=== PATIENT | male | born 1950 | race Caucasian/White ===

== ENCOUNTER → 2021-12-23 10:52 | Outpatient (BNVA) | payer MEDICARE, OTHER, SELFPAY | PROVIDERS: PCP Internal Medicine; Referring Provider Internal Medicine; Visit Provider Internal Medicine Cardiovascular Disease | DX: I34.0 Nonrheumatic mitral (valve) insufficiency (principal); Z79.01 Long term (current) use of anticoagulants; I48.91 Unspecified atrial fibrillation; I77.810 Thoracic aortic ectasia; Z98.890 Other specified postprocedural states | CPT/HCPCS: 93005; 99203 ==

== ENCOUNTER 2021-12-23 11:01 | Outpatient (CLI) | payer MEDICARE, OTHER, SELFPAY ==
--- NOTE | 2021-12-23 11:00 | RT.EKG_ITS ---
APPROVED REPORT Exam: Resting ECG Reason for Exam: NPW, Baseline needed Patient Location: O HR:67 bpm ECG Measurements Heart Rate 67 AXIS WA 189 P 20 QRSd 96 QRS 24 QT 395 T 34 QTc 417 Conclusion Sinus rhythm...normal P axis, V-rate 50- 99 Late transition
== END 2021-12-23 11:02 | disposition home or self-care (01) ==
LOC: DI.CARD 11:02
PROVIDERS: PCP Internal Medicine; Visit Provider Internal Medicine Cardiovascular Disease
DX: I48.91 Unspecified atrial fibrillation (principal)
CPT/HCPCS: 93010

== ENCOUNTER 2022-06-02 07:17 | Day surgery (SDC) | payer MEDICARE, OTHER, SELFPAY ==
--- NOTE | 2022-06-02 07:49 | W.ANESPRE ---
General Info Date of Service Date Performed: 06/02/22 Height: 5 ft 10 in Weight: 85.275 kg Body Mass Index (BMI): 26.9 Surgical Procedure: Operation Date: 06/02/22 09:10 Proposed Procedure Side Surgeon p Cataract Extraction with IOL Implant Left Ulysses Omalley MD Meds Allergies and Home Medications Allergies Allergy/AdvReac Type Severity Reaction Status Date / Time No Known Allergies Allergy Verified 06/02/22 08:02 Home Medication Medication Instructions Recorded acetaminophen 500 mg capsule 500 mg PO Q6H PRN 11/16/21 amoxicillin 500 mg capsule 2,000 mg PO DAILY PRN 11/16/21 apixaban 5 mg tablet 5 mg PO BID 11/16/21 ascorbate calcium (vitamin C) 500 2 g PO DAILY 11/16/21 mg tablet aspirin 81 mg tablet,delayed 81 mg PO DAILY 11/16/21 release (Adult Aspirin Regimen) atorvastatin 40 mg tablet 40 mg PO DAILY 11/16/21 cholecalciferol (vitamin D3) 50 50 mcg PO DAILY 11/16/21 mcg (2,000 unit) capsule diltiazem HCl 180 mg capsule,24 180 mg PO DAILY 11/16/21 hr,extended release metoprolol succinate 50 mg 50 mg PO DAILY 11/16/21 tablet,extended release 24 hr vitamin B complex (B 1 tab PO DAILY 11/16/21 Complex-Vitamin B12 tablet) zinc 50 mg tablet 50 mg PO DAILY 11/16/21 Current Visit Medications: Current Medications Generic Name Dose Route Start Last Admin Trade Name Freq PRN Reason Stop Dose Admin Acetaminophen 1,000 mg 06/02/22 06:00 Acetaminophen 500 Mg Tab PO Q4H PRN PRN Miscellaneous Medication 0 ml 06/02/22 06:00 Prednisolone 1%, Moxifloxacin 0.5%, Nepafenac 0.1% 5ml Btl OS DIRECTED NING Miscellaneous Medication 0 ml 06/02/22 06:00 Tropicam./Phenyleph. (1/2.5%) 5 Ml Btl OS DIRECTED NING Tetracaine HCl 0 ml 06/02/22 06:00 Tetracaine 0.5% 4 Ml Btl OS DIRECTED NING PFSH Active Problems Active Problems: Problem Status Onset Code Nuclear sclerotic cataract of left eye H25.12 Medical History Medical History Abnormal TSH Afib Aortic ectasia, thoracic Aortic root dilatation Claustrophobia Triplett syndrome Neck pain MIRIAN (obstructive sleep apnea) Overweight Pulmonary HTN Reduced libido Surgical History Surgical History H/O laminectomy [place] [place] surgery Maxillary sinusotomy and partial ethmoidectomy History of tonsillectomy Hx of cardiac cath Hx of colonoscopy Hx of vasectomy Tobacco Smoking/Tobacco Use Status: Former Tobacco Use Alcohol Alcohol Intake: current Alcohol intake frequency: 3 or more drinks per day Alcohol type: wine Substance Use Substance use type: does not use Vital Signs and Lab Results Manually Entered Vital Signs Most Recent Manually Entered Vital Signs: Adult Blood Pressure: 149/92 Heart Rate: 65 Respirations: 16 Oxygen Saturation (%): 96 Temperature (C): 37 C Pain Score (0-10 Scale): 0 Lab Results Blood Type / Crossmatch: No Data to Display Complete Blood Count: No Data to Display Complete Metabolic Panel: No Data to Display Liver Function Panel: No Data to Display Coagulation Panel: No Data to Display Cardiac Panel: No Data to Display Arterial Blood Gas: No Data to Display Venous Blood Gas: No Data to Display Pancreas Panel: No Data to Display Thyroid Panel: No Data to Display Infectious Disease: No Data to Display Blood Cultures: No Data to Display Toxicology Panel: No Data to Display Imaging and Studies Imaging and Studies Study information below may be from another EMR and interpreted by another provider. Please see original notes in EMR for more complete details. Other Study Summary:: Assessment & Plan (1) Afib: Patient has paroxysmal atrial fibrillation. He is currently in sinus rhythm. He is on stroke prevention with Eliquis. It was discussed that he should continue that medication. We also reviewed that atrial fibrillation may well recur and that various other interventions and medications remain potential therapies. At present I did not recommend any change in his medical regimen (2) H/O mitral valve repair: Patient is status post mitral valve repair. He has some residual mitral regurgitation. Last echo was in July. 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 This will be monitored moving forward by echocardiogram Plan As above, no medication changes, no diagnostic testing recommended today. Follow-up in 6 months Orders [id number] - Unspecified atrial fibrillation Assessment & Plan (1) Afib: Patient has paroxysmal atrial fibrillation. He is currently in sinus rhythm. He is on stroke prevention with Eliquis. It was discussed that he should continue that medication. We also reviewed that atrial fibrillation may well recur and that various other interventions and medications remain potential therapies. At present I did not recommend any change in his medical regimen (2) H/O mitral valve repair: Patient is status post mitral valve repair. He has some residual mitral regurgitation. Last echo was in July. 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 This will be monitored moving forward by echocardiogram Plan As above, no medication changes, no diagnostic testing recommended today. Follow-up in 6 months Orders [id number] - Unspecified atrial fibrillation Anesthesia Assessment and Plan Anesthesia History Personal History: No History of Anesthesia Complications Family History: No Family History of Anesthesia Complications Exercise Tolerance Exercise Tolerance: Metabolic Equivalents>4 Pertinent Negatives Pertinent Negatives: No Symptoms of GERD Cardiac & Pulmonary Exam Cardiac Exam: Normal S1/S2 Heart Sounds Pulmonary Exam: Clear Bilateral Breath Sounds Implantable Cardiac Device Does patient have a Pacemaker or an ICD?: No Airway Exam Known Difficult Airway: No Mallampati Class: 3 Mouth Opening: Normal (> 3cm) Thyromental Distance: Greater than 3 cm Neck Range of Motion: Full ROM Neck Circumference: Normal Teeth Condition: Normal Dentition ASA Classification ASA Score: ASA 3 Emergency Case?: No NPO Status NPO Status: NPO Clears >2 hours, Solids >8 hours Anesthesia Plan Resuscitation Status: Full Code Anesthesia Technique: MAC Anesthesia Airway Planned: Natural Airway Monitors Used: Standard Monitors Preoperative Comments:: No mko
[2022-06-02 08:05] VITALS: BP 149/92; PULSE 65; RESP 16; TEMP 37; O2SAT 96
[2022-06-02 08:08] VITALS: BMI 26.9
[2022-06-02] MEDS: Tropicam./Phenyleph. (1/2.5%) 5 ML BTL OS ×3 (08:13→08:23)
[2022-06-02 08:26] VITALS: BP 149/92; PULSE 65; RESP 16; TEMPC 37; O2SAT 96
[2022-06-02] MEDS: Tetracaine 0.5% 4 ML BTL OS (08:49)
[2022-06-02] MEDS: Lidocaine 2% Jelly 6 ML SYR (08:50)
[2022-06-02] MEDS: Balanced Salt Soln.-PLUS 500 ML BAG (08:58)
[2022-06-02] MEDS: Duovisc Viscoelastic System EACH 1 EACH (08:59)
[2022-06-02] MEDS: Lidocaine 1% Pres-Free 5 ML VIAL (08:59)
[2022-06-02] MEDS: Povidone-Iodine Ophth 30 ML BTL (09:01)
[2022-06-02 09:15] VITALS: BP 134/89; PULSE 65; RESP 16; TEMP 36.2; O2SAT 100
--- NOTE | 2022-06-02 09:20 | W.PM.DSUDISC ---
Date of service: 06/02/22 Time of Service: 09:20 Discharge Plan Disposition Patient Disposition: Home Discharge Details Attending Provider: Ulysses Omalley Home Meds and New Rx's Prescriptions: No Action acetaminophen 500 mg capsule 500 mg PO Q6H PRN amoxicillin 500 mg capsule 2,000 mg PO DAILY PRN Label Comments: prior to dental procedure. apixaban 5 mg tablet 5 mg PO BID aspirin [Adult Aspirin Regimen] 81 mg tablet,delayed release (DR/EC) 81 mg PO DAILY atorvastatin 40 mg tablet 40 mg PO DAILY vitamin B complex [B Complex-Vitamin B12] Tablet 1 tab PO DAILY diltiazem HCl 180 mg capsule,extended release 24 hr 180 mg PO DAILY metoprolol succinate 50 mg tablet extended release 24 hr 50 mg PO DAILY ascorbate calcium (vitamin C) 500 mg tablet 2 g PO DAILY cholecalciferol (vitamin D3) 50 mcg (2,000 unit) capsule 50 mcg PO DAILY zinc 50 mg tablet 50 mg PO DAILY Discharge Instructions Stand Alone Forms: Post-op Topical Cataract, Margareth Ganey ([facility]U) Discharge Orders Discharge Orders: Discharge Order (Routine); Ordered 06/02/22 Ordered By: Ulysses Omalley DS: Diagnosis Discharge Diagnosis (1) Nuclear sclerotic cataract of left eye: Status: Resolved
--- NOTE | 2022-06-02 09:21 | ROE_ITS ---
Date of service: 06/02/22 Time of Service: 09:21 Operative Note Operative Note DATE OF PROCEDURE: 06/02/22 PRE-OP DIAGNOSIS: Nuclear cataract, left eye POST-OP DIAGNOSIS: same PROCEDURE: Cataract extraction using phacoemulsification with intraocular lens implant, left eye SURGEON: Ulysses Omalley ANESTHESIA TYPE: Local By Surgeon and MAC Refer to Anesthesia Record PATHOLOGY: none sent COMPLICATIONS: None Patient was transported to: same day Patient's condition: stable Implants: Juanito and Juanito / [employer] Tecnis [id number] Indications: Progressive decreased vision due to cataract, left eye Procedure Description: CATARACT SURGERY OPERATIVE REPORT PREOPERATIVE DIAGNOSIS: 1. Nuclear cataract, left eye POSTOPERATIVE DIAGNOSIS: Same OPERATION: 1. Cataract extraction using phacoemulsification with posterior chamber intraocular lens implant, left eye. IOL: IOL Photovoltaic Panel Installer/Model: Juanito & Juanito / MORRIS Tecnis [id number] IOL Power: + 15.0 diopters IOL Serial Number: [id number] Optic Diameter: 6.0 mm Haptic/Overall Diameter: 13.0 mm PHACO INFO: Ean Color Promosurion Vision System with OZil and Active Fluidics Cumulative Dispersed Energy (CDE): 8.07 seconds SURGEON: Ulysses Omalley MD, RYAN ANESTHESIA: Monitored A [facility] (MAC), with local sub-tenon's anesthetic infiltration COMPLICATIONS: None SPECIMENS: None INDICATIONS FOR PROCEDURE: The patient is a 71-year-old gentleman with history of diminished visual acuity in his left eye secondary to the development of significant nuclear cataract. He is significantly symptomatic that he desires cataract surgery and attempt to improve and maximize his vision. The option of cataract surgery was offered to the patient and he wished to proceed. PROCEDURE: The correct surgical eye was identified and marked as the left eye and the pupil was dilated in the preoperative area using mydriatics and cycloplegics. The dilated pupil size was 7.0 mm. The patient elected to proceed without oral sedation. The patient was brought to the operating room where cardiopulmonary monitoring was instituted and surgical time-out was performed, confirming the correct operative eye and IOL power. Topical anesthesia was administered and ophthalmic povidone-iodine 5% was instilled into the conjunctival fornices. Lidocaine gel was applied to the cornea and the ronn-ocular area was prepped with Betadine 10% solution and draped in the usual sterile fashion for intraocular surgery, including an aperture drape. A Tegaderm transparent film dressing was cut in half and used to cover the lashes and lid margins. Care was taken to sequester the lashes and lid margins under the Tegaderm dressing. A lid speculum was placed between the lids of the operative eye and the Ean LuxOR Revalia operating microscope was maneuvered into position. Neto scissors were then used to make a conjunctival buttonhole approximately 6mm posterior to the limbus in the inferonasal quadrant. Blunt dissection was carried out to expose bare sclera, and a blunt-tipped sub-tenon?s anesthesia cannula was introduced and passed posteriorly along the globe where non- preserved plain lidocaine was injected into posterior sub-Tenon?s space. A sideport knife was used to make a paracentesis port superiorly/superiortemporally. Intraocular phenylephrine/lidocaine was injected int the anterior chamber.. The anterior chamber was filled with viscoelastic. A keratome knife was used to construct a 2-plane near-clear corneal tunnel extending 2.0mm into clear cornea temporally. A flap was raised on the anterior capsule and capsulorhexis forceps were used to complete a continuous curvilinear capsulorhexis of 5.0 mm. Balanced salt solution was then used to perform cortical cleaving hydrodissection and nuclear hydrodelineation until the lens could be freely rotated within the capsular bag. The lens nucleus was then disassembled and removed within the capsular bag and iris plane using phacoemulsification. Residual cortical material was removed using the 45-degree angled silicone I/A tip with 0.3mm port. The posterior capsule was carefully polished to remove as much residual lens epithelial cells as safely possible. The capsular bag was th en inflated and the anterior chamber deepened with viscoelastic. The lens implant described above was inserted into the capsular bag using the MORRIS [place] Injector. A Kuglen hook was used to dial the IOL into position. Residual viscoelastic was then removed first from posterior to the IOL, then from the anterior chamber using the I/A handpiece. The lens implant was noted to center nicely within the capsular bag. The incisions were stromally hydrated, and the anterior chamber was reformed using BSS. Then 0.5cc of moxifloxacin 1.0mg/ml were injected into the capsular bag and anterior chamber. The incisions were checked with a Weck spear and found to be secure. Several drops of ophthalmic povidone-iodine 5% were then applied to the eye followed by two drops of Imprimis combination prednisolone/moxifloxacin/nepafenac solution. The drapes were removed and a clear plastic protective eye shield was placed over the eye. The patient was then returned to Same Day Surgery in stable con dition.
--- NOTE | 2022-06-02 09:43 | W.ANESPOSTOP ---
Postoperative Evaluation Date, Time and Location Date Performed: 06/02/22 Time Performed: 09:30 Patient Location: Day Surgery Unit Vital Signs Most Recent Imported Vital Signs: Most Recent Vital Signs Temp Pulse Resp BP Pulse Ox 36.2 C L 65 16 134/89 100 06/02/22 09:15 06/02/22 09:15 06/02/22 09:15 06/02/22 09:15 06/02/22 09:15 Pain Score Most Recent Pain Score: Most Recent Pain Score Pain Level 0 06/02/22 09:15 Assessment Mental Status: Awake (Alert & Oriented to Patient Baseline) Airway and Respiratory Function: Patent airway with normal (patient baseline) respiratory exam Cardiovascular Function: Hemodynamically Stable Hydration Status: Adequately Hydrated Nausea & Vomiting: No Nausea or Vomiting Pain: Pt. Denies Any Pain Peripheral Nerve Block: Patient did not receive a nerve block
== END 2022-06-02 09:39 | disposition home or self-care (01) ==
PROVIDERS: Visit Provider Ophthalmology
PROC: (CPT 66984; principal; 2022-06-02 09:00)
DX: H25.12 Age-related nuclear cataract, left eye (principal)
CPT/HCPCS: 66984; V2632

== ENCOUNTER 2022-06-16 07:20 | Day surgery (SDC) | payer MEDICARE, OTHER, SELFPAY ==
[2022-06-16 07:49] VITALS: BP 136/86; PULSE 65; RESP 16; TEMP 36.5; O2SAT 98
[2022-06-16] MEDS: Tropicam./Phenyleph. (1/2.5%) 5 ML BTL OD ×3 (07:57→08:16)
--- NOTE | 2022-06-16 08:08 | W.ANESPRE ---
General Info Date of Service Date Performed: 06/16/22 Height: 5 ft 10 in Weight: 88 kg Body Mass Index (BMI): 27.8 Surgical Procedure: Operation Date: 06/16/22 09:10 Proposed Procedure Side Surgeon p Cataract Extraction with IOL Implant Right Ulysses Omalley MD Meds Allergies and Home Medications Allergies Allergy/AdvReac Type Severity Reaction Status Date / Time No Known Allergies Allergy Verified 06/16/22 07:47 Home Medication Medication Instructions Recorded acetaminophen 500 mg capsule 500 mg PO Q6H PRN 11/16/21 amoxicillin 500 mg capsule 2,000 mg PO DAILY PRN 11/16/21 apixaban 5 mg tablet 5 mg PO BID 11/16/21 ascorbate calcium (vitamin C) 500 2 g PO DAILY 11/16/21 mg tablet aspirin 81 mg tablet,delayed 81 mg PO DAILY 11/16/21 release (Adult Aspirin Regimen) atorvastatin 40 mg tablet 40 mg PO DAILY 11/16/21 cholecalciferol (vitamin D3) 50 50 mcg PO DAILY 11/16/21 mcg (2,000 unit) capsule diltiazem HCl 180 mg capsule,24 180 mg PO DAILY 11/16/21 hr,extended release metoprolol succinate 50 mg 50 mg PO DAILY 11/16/21 tablet,extended release 24 hr vitamin B complex (B 1 tab PO DAILY 11/16/21 Complex-Vitamin B12 tablet) zinc 50 mg tablet 50 mg PO DAILY 11/16/21 Current Visit Medications: Current Medications Generic Name Dose Route Start Last Admin Trade Name Freq PRN Reason Stop Dose Admin Acetaminophen 1,000 mg 06/16/22 06:00 Acetaminophen 500 Mg Tab PO Q4H PRN PRN Miscellaneous Medication 0 ml 06/16/22 06:00 Prednisolone 1%, Moxifloxacin 0.5%, Nepafenac 0.1% 5ml Btl OD DIRECTED [facility] Miscellaneous Medication 0 ml 06/16/22 06:00 06/16/22 07:57 Tropicam./Phenyleph. (1/2.5%) 5 Ml Btl OD 1 drp DIRECTED NING Administration Tetracaine HCl 0 ml 06/16/22 06:00 Tetracaine 0.5% 4 Ml Btl OD DIRECTED [facility] PFSH Active Problems Active Problems: Problem Status Onset Code Nuclear sclerotic cataract of left eye H25.12 Medical History Medical History Abnormal TSH Afib Aortic ectasia, thoracic Aortic root dilatation Claustrophobia Triplett syndrome Neck pain MIRIAN (obstructive sleep apnea) Overweight Pulmonary HTN Reduced libido Surgical History Surgical History H/O laminectomy [place] [place] of sinus surgery Maxillary sinusotomy and partial ethmoidectomy History of tonsillectomy Hx of cardiac cath Hx of colonoscopy Hx of vasectomy Tobacco Smoking/Tobacco Use Status: Former Tobacco Use Alcohol Alcohol Intake: current Alcohol intake frequency: 3 or more drinks per day Alcohol type: wine Substance Use Substance use type: does not use Vital Signs and Lab Results Vital Signs Most Recent Vital Signs in EMR: Most Recent Vital Signs Temp Pulse Resp BP Pulse Ox 36.5 C 65 16 136/86 98 06/16/22 07:49 06/16/22 07:49 06/16/22 07:49 06/16/22 07:49 06/16/22 07:49 Lab Results Blood Type / Crossmatch: No Data to Display Complete Blood Count: No Data to Display Complete Metabolic Panel: No Data to Display Liver Function Panel: No Data to Display Coagulation Panel: No Data to Display Cardiac Panel: No Data to Display Arterial Blood Gas: No Data to Display Venous Blood Gas: No Data to Display Pancreas Panel: No Data to Display Thyroid Panel: No Data to Display Infectious Disease: No Data to Display Blood Cultures: No Data to Display Toxicology Panel: No Data to Display Imaging and Studies Imaging and Studies Study information below may be from another EMR and interpreted by another provider. Please see original notes in EMR for more complete details. EKG Summary: 01/09 Conclusion Sinus rhythm...normal P axis, V-rate 50- 99 Late transition Other Study Summary:: Assessment & Plan (1) Afib: Patient has paroxysmal atrial fibrillation. He is currently in sinus rhythm. He is on stroke prevention with Eliquis. It was discussed that he should continue that medication. We also reviewed that atrial fibrillation may well recur and that various other interventions and medications remain potential therapies. At present I did not recommend any change in his medical regimen (2) H/O mitral valve repair: Patient is status post mitral valve repair. He has some residual mitral regurgitation. Last echo was in July. 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 This will be monitored moving forward by echocardiogram Plan As above, no medication changes, no diagnostic testing recommended today. Follow-up in 6 months Orders [id number] - Unspecified atrial fibrillation Assessment & Plan (1) Afib: Patient has paroxysmal atrial fibrillation. He is currently in sinus rhythm. He is on stroke prevention with Eliquis. It was discussed that he should continue that medication. We also reviewed that atrial fibrillation may well recur and that various other interventions and medications remain potential therapies. At present I did not recommend any change in his medical regimen (2) H/O mitral valve repair: Patient is status post mitral valve repair. He has some residual mitral regurgitation. Last echo was in July. 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 This will be monitored moving forward by echocardiogram Plan As above, no medication changes, no diagnostic testing recommended today. Follow-up in 6 months Orders [id number] - Unspecified atrial fibrillation Anesthesia Assessment and Plan Anesthesia History Personal History: No History of Anesthesia Complications Family History: No Family History of Anesthesia Complications Exercise Tolerance Exercise Tolerance: Metabolic Equivalents>4 Pertinent Negatives Pertinent Negatives: No Symptoms of GERD Cardiac & Pulmonary Exam Cardiac Exam: Normal S1/S2 Heart Sounds Pulmonary Exam: Clear Bilateral Breath Sounds Implantable Cardiac Device Does patient have a Pacemaker or an ICD?: No Airway Exam Known Difficult Airway: No Mallampati Class: 3 Mouth Opening: Normal (> 3cm) Thyromental Distance: Greater than 3 cm Neck Range of Motion: Full ROM Neck Circumference: Normal Teeth Condition: Normal Dentition ASA Classification ASA Score: ASA 3 Emergency Case?: No NPO Status NPO Status: NPO Clears >2 hours, Solids >8 hours Anesthesia Plan Resuscitation Status: Full Code Anesthesia Technique: MAC Anesthesia Airway Planned: Natural Airway Monitors Used: Standard Monitors Preoperative Comments:: Claustrophobic, no MKO
[2022-06-16 08:11] VITALS: BMI 27.8
[2022-06-16] MEDS: Povidone-Iodine Ophth 30 ML BTL (08:55)
[2022-06-16] MEDS: Tetracaine 0.5% 4 ML BTL OD (08:55)
[2022-06-16] MEDS: Lidocaine 2% Jelly 6 ML SYR (08:55)
[2022-06-16] MEDS: Balanced Salt Soln.-PLUS 500 ML BAG (08:58)
[2022-06-16] MEDS: Duovisc Viscoelastic System EACH 1 EACH (08:58)
[2022-06-16 09:15] VITALS: BP 142/94; PULSE 68; RESP 16; TEMP 36.2; O2SAT 100
--- NOTE | 2022-06-16 09:17 | W.PM.DSUDISC ---
Date of service: 06/16/22 Time of Service: 09:17 Discharge Plan Disposition Patient Disposition: Home Discharge Details Attending Provider: Ulysses Omalley Primary Care Provider: Anshu Rice Home Meds and New Rx's Prescriptions: No Action acetaminophen 500 mg capsule 500 mg PO Q6H PRN amoxicillin 500 mg capsule 2,000 mg PO DAILY PRN Label Comments: prior to dental procedure. apixaban 5 mg tablet 5 mg PO BID aspirin [Adult Aspirin Regimen] 81 mg tablet,delayed release (DR/EC) 81 mg PO DAILY atorvastatin 40 mg tablet 40 mg PO DAILY vitamin B complex [B Complex-Vitamin B12] Tablet 1 tab PO DAILY diltiazem HCl 180 mg capsule,extended release 24 hr 180 mg PO DAILY metoprolol succinate 50 mg tablet extended release 24 hr 50 mg PO DAILY ascorbate calcium (vitamin C) 500 mg tablet 2 g PO DAILY cholecalciferol (vitamin D3) 50 mcg (2,000 unit) capsule 50 mcg PO DAILY zinc 50 mg tablet 50 mg PO DAILY Discharge Instructions Stand Alone Forms: Post-op Topical Cataract, Margareth White ([facility]) Discharge Orders Discharge Orders: Discharge Order (Routine); Ordered 06/16/22 Ordered By: Ulysses Omalley DS: Diagnosis Discharge Diagnosis (1) Nuclear sclerotic cataract of right eye: Status: Resolved
--- NOTE | 2022-06-16 09:18 | W.PM.OP ---
Date of service: 06/16/22 Time of Service: 09:18 Operative Note Operative Note DATE OF PROCEDURE: 06/16/22 PRE-OP DIAGNOSIS: Nuclear cataract, right eye POST-OP DIAGNOSIS: same PROCEDURE: Cataract extraction using phacoemulsification with intraocular lens implant, right eye SURGEON: Ulysses Omalley ANESTHESIA TYPE: Local By Surgeon and MAC Refer to Anesthesia Record ESTIMATED BLOOD LOSS: 0 PATHOLOGY: none sent COMPLICATIONS: None Patient was transported to: same day Patient's condition: stable Implants: Juanito [employer] Juanito Tecnis Eyhance [id number] Indications: Progressive visual loss due to cataract, right eye Procedure Description: CATARACT SURGERY OPERATIVE REPORT PREOPERATIVE DIAGNOSIS: 1. Nuclear cataract, right eye POSTOPERATIVE DIAGNOSIS: Same OPERATION: 1. Cataract extraction using phacoemulsification with posterior chamber intraocular lens implant, right eye. IOL: IOL Executive Sales Assistant/Model: Juanito [employer] Juanito Tecnis Eyhance DIB00 IOL Power: + 15.0 diopters IOL Serial Number: [id number] Optic Diameter: 6.0mm Haptic/Overall Diameter: 13.0mm PHACO INFO: EanAriisto Vision System with OZil and Active Fluidics Cumulative Dispersed Energy (CDE): 6.12 seconds SURGEON: Ulysses Omalley MD, RYAN ANESTHESIA: Monitored Anesthesia Care (MAC), with local sub-tenon's anesthetic infiltration COMPLICATIONS: None SPECIMENS: None INDICATIONS FOR PROCEDURE: The patient is a 71-year-old gentleman with history of diminished visual acuity in his right eye secondary to the development of nuclear cataract. He has already undergone cataract surgery in his left eye and is doing well postoperatively. He now presents for cataract surgery in the right eye. PROCEDURE: The correct surgical eye was identified and marked as the right eye and the pupil was dilated in the preoperative area using mydriatics and cycloplegics. The dilated pupil size was 7.0 mm. The patient elected to proceed without oral sedation. The patient was brought to the operating room where cardiopulmonary monitoring was instituted and surgical time-out was performed, confirming the correct operative eye and IOL power. Topical anesthesia was administered and ophthalmic povidone-iodine 5% was instilled into the conjunctival fornices. Lidocaine gel was applied to the cornea and the ronn-ocular area was prepped with Betadine 10% solution and draped in the usual sterile fashion for intraocular surgery, including an aperture drape. A Tegaderm transparent film dressing was cut in half and used to cover the lashes and lid margins. Care was taken to sequester the lashes and lid margins under the Tegaderm dressing. A lid speculum was placed between the lids of the operative eye and the Ean Lux[employer] Revalia operating microscope was maneuvered into position. Neto scissors were then used to make a conjunctival buttonhole approximately 6mm posterior to the limbus in the inferonasal quadrant. Blunt dissection was carried out to expose bare sclera, and a blunt-tipped sub-tenon?s anesthesia cannula was introduced and passed posteriorly along the globe where non-preserved plain lidocaine was injected into posterior sub-Tenon?s space. A sideport knife was used to make a paracentesis port inferotemporally. Intraocular phenylephrine/lidocaine was injected into the anterior chamber. The anterior chamber was filled with viscoelastic. A keratome knife was used to construct a 2-plane near-clear corneal tunnel extending 2.0mm into clear cornea superiortemporally. A flap was raised on the anterior capsule and capsulorhexis forceps were used to complete a continuous curvilinear capsulorhexis of 5.0 mm. Balanced salt solution was then used to perform cortical cleaving hydrodissection and nuclear hydrodelineation until the lens could be freely rotated within the capsular bag. The lens nucleus was then disassembled and removed within the capsular bag and iris plane using phacoemulsification. Residual cortical material was removed using the I/A handpiece. The posterior capsule was carefully polished to remove as much residual lens epithelial cells as safely possible. The capsular bag was then inflated and the anterior chamber deepened with viscoelastic. The lens implant described above was inserted into the capsular bag using the Juanito and Doug Simplicity pre-loaded injector. A Kuglen hook was used to dial the IOL into position. Residual viscoelastic was then removed first from posterior to the IOL, then from the anterior chamber using the I/A handpiece. The lens implant was noted to center nicely within the capsular bag. The incisions were stromally hydrated, and the anterior chamber was reformed using BSS. Then 0.5cc of moxifloxacin 1.0mg/ml were injected into the capsular bag and anterior chamber. The incisions were checked with a Weck spear and found to be secure. Several drops of ophthalmic povidone-iodine 5% were then applied to the eye followed by two drops of Imprimis combination prednisolone/moxifloxacin/nepafenac solution. The drapes were removed and a clear plastic protective eye shield was placed over the eye. The patient was then returned to [facility] in stable condition.
--- NOTE | 2022-06-16 09:27 | W.ANESPOSTOP ---
Postoperative Evaluation Date, Time and Location Date Performed: 06/16/22 Time Performed: : Patient Location: Day Surgery Unit Vital Signs Most Recent Imported Vital Signs: Most Recent Vital Signs Temp Pulse Resp BP Pulse Ox 36.2 C L 68 16 142/94 H 100 06/16/22 09:15 06/16/22 09:15 06/16/22 09:15 06/16/22 09:15 06/16/22 09:15 Pain Score Most Recent Pain Score: Most Recent Pain Score Pain Level 0 06/16/22 09:15 Assessment Mental Status: Awake (Alert & Oriented to Patient Baseline) Airway and Respiratory Function: Patent airway with normal (patient baseline) respiratory exam Cardiovascular Function: Hemodynamically Stable Hydration Status: Adequately Hydrated Nausea & Vomiting: No Nausea or Vomiting Pain: Pt. Denies Any Pain Peripheral Nerve Block: Patient did not receive a nerve block
== END 2022-06-16 09:33 | disposition home or self-care (01) ==
LOC: SUR 07:20
PROVIDERS: PCP Family Medicine; Visit Provider Ophthalmology
PROC: (CPT 66984; principal; 2022-06-16 09:00)
DX: H25.11 Age-related nuclear cataract, right eye (principal)
CPT/HCPCS: 66984; V2632

== ENCOUNTER → 2022-06-27 10:53 | Outpatient (BNVA) | payer MEDICARE, OTHER, SELFPAY | PROVIDERS: PCP Family Medicine; Referring Provider Internal Medicine; Visit Provider Internal Medicine Cardiovascular Disease | DX: I48.0 Paroxysmal atrial fibrillation (principal); Z98.890 Other specified postprocedural states | CPT/HCPCS: 99214; 99213 ==

== ENCOUNTER 2022-12-21 01:15 | Outpatient (CLI) | payer MEDICARE, OTHER, SELFPAY ==
--- NOTE | 2022-12-21 06:45 | DI.US_ITS ---
APPROVED REPORT EXAM: Comprehensive 2D, Doppler, and color-flow Echocardiogram Patient Location: Out-Patient Steel Layer: Violet Hansen RDCS (AE) Indications: Status post mitral valve repair, Paroxysmal atrial fibrillation Other Information Study Quality: Adequate Conclusion Normal left ventricular wall thickness and chamber size. Ejection fraction is 55 to 60%. Wall motio n is normal Normal right ventricular size and systolic function Both atria are mildly enlarged Aortic valve is sclerotic and trileaflet with mild regurgitation Patient is status post mitral valve repair with an annuloplasty ring. There is mild mitral regurgita tion Normal tricuspid valve with mild regurgitation. 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 The left ventricular systolic function is normal. The left ventric ular ejection fraction is within the normal range. There is normal left ventricular wall thickness. T here is normal LV segmental wall motion. There is no ventricular septal defect visualized. LVEF is 55 -60%. Right Ventricle The right ventricle is normal size. The right ventricular systolic function is normal. The RVSP is 26 .0 mmHg. Atria Left atrium is borderline dilated. Right atrium is borderline dilated. The interatrial septum is int act with no evidence for an atrial septal defect. Aortic Valve The aortic valve is sclerotic Aortic valve is trileaflet. There is no aortic valvular stenosis. Mild aortic regurgitation. Mitral Valve Mitral annuloplasty changes are present. No evidence of mitral valve stenosis. Mild mitral regurgitat ion. Tricuspid Valve The tricuspid valve is normal in structure. There is no tricuspid valve stenosis. Mild tricuspid regu rgitation. Pulmonic Valve The pulmonary valve is normal in structure. There is no pulmonic valvular stenosis. Mild pulmonic reg urgitation. Great Vessels Aortic root is mildly dilated. The ascending aorta is mild to moderately Aortic arch is normal in ca liber. dilated. IVC is normal in size and collapses >50% with inspiration. Pericardium There is no pericardial effusion. 2D Dimensions IVSD d PLAX 1.26 cm M: 0.6-1.2 LV Vol A2C d MOD 133.3 mL LVPW d PLAX 1.20 cm M: 0.6 - 1.2 LV Vol A4C d MOD 142.5 mL LVID d PLAX 4.61 cm M: 4.2 - 5.8 LA vol/ BSA A2C s A-L 43.8 mL/m2 LVDs 3.10 cm M: 2.5 - 4.0 LA vol/ BSA A4C s A-L 34.1 mL/m2 Ao Root d 4.01 cm M: 3.1 - 3.7 LA Vol/ BSA Biplane s A-L 40.5 mL/m2 RA Area A4C 22.06 cm2 LA Area A4C s MOD 23.11 cm2 RA Vol/ BSA A4C s A-L 34.9 mL/m2 LA Area A2C s MOD 24.99 cm2 Ao Asc Diam d 4.13 cm M: 2.6 - 3.4 LV EF A4C MOD 55.2 % LV EF Teichholz 60.5 % LV EF A2C MOD 55.9 % LVEF (Weston's) 55.32 % M: 52 - 72 LV EF Biplane MOD 55.3 % LV Volume 102.47 mL M: 62 - 150 SV 76.39 mL LV Volume Index 49.50 mL/m2 M: 34 - 74 SV Index 36.99 mL/m2 LV Vol Biplane MOD 138.1 mL FS 32.25 % M-Mode TAPSE 2.85 cm (M/F) >1.7 LV Diastology MV E' medial 0.075 (>0.07 m/s) E/A Ratio 1.9 LV E/e MED 18.70 (<14) MV E Vmax 1.41 (0.4-1.3 m/s) MV E' lateral 0.081 (>0.1 m/s) MV A Vmax 0.75 (0.4-1.3 m/s) LV E/e LAT 17.35 (<14) MV E/A Ratio 1.77 MV E/E' medial 18.71 MV E/E' lateral 17.36 Aortic Valve LVOT Area 2.83 cm2 AoV Area Vmax 2.59 cm2 LVOT Vmax 1.04 m/s AoV Area/ BSA (Vmax) 1.25 cm2/m2 LVOT Mean Beto. 0.72 m/s WINSTON Mean Beto. 2.50 cm2 LVOT Peak Grad 4.3 mmHg WINSTON Mean Beto. Index 1.21 cm2/m2 LVOT Mean Grad 2.4 mmHg AR DT 3400 msec LVOT VTI 0.250 m AR PHT 986 msec LVOT Diam s 1.85 cm AoV Vmax 1.13 m/s Velocity Ratio 0.92 AoV Mean Beto. 0.81 m/s AoV Peak Grad 5.1 mmHg LVOT SV 70.80 mL AoV Mean Grad 2.9 mmHg AoV VTI 0.269 m AoV Area VTI 2.63 cm2 AoV Area/ BSA (VTI) 1.27 cm/m2 Mitral Valve MV DT 269 (160-240 msec) MV PHT 78 msec MV Area PHT 2.82 cm2 MV VTI 0.527 m MV VTI Annulus 0.524 m MV Area VTI 1.34 (4.0-6.0 cm2) Pulmonary Valve PV Vmax 0.78 (0.5-1.5 m/s) RVOT Peak Gr. 0.99 mmHg PV Peak Grad 2.4 mmHg RVOT Mean Gr. 0.45 mmHg PV Mean Grad 1.1 mmHg RVOT VTI 0.126 m PV VTI 0.167 m RVOT Vmax 0.50 m/s Tricuspid Valve TR Peak Grad 22.9 mmHg TR Vmax 2.40 m/s RA Pressure 3.00 mmHg RVSP (TR) 26.0 mmHg
== END 2022-12-21 01:35 ==
PROVIDERS: PCP Family Medicine; Visit Provider Internal Medicine Cardiovascular Disease
DX: I48.0 Paroxysmal atrial fibrillation (principal); Z98.890 Other specified postprocedural states
CPT/HCPCS: 93306

== ENCOUNTER → 2023-01-01 10:23 | Outpatient (BNVA) | payer MEDICARE, OTHER, SELFPAY | PROVIDERS: PCP Family Medicine; Visit Provider Internal Medicine Cardiovascular Disease | DX: Z79.01 Long term (current) use of anticoagulants (principal); I77.810 Thoracic aortic ectasia; I48.0 Paroxysmal atrial fibrillation; Z98.890 Other specified postprocedural states | CPT/HCPCS: 99214 ==

== ENCOUNTER 2023-12-31 08:55 | Outpatient (CLI) | payer MEDICARE, OTHER, SELFPAY ==
--- NOTE | 2023-12-31 08:45 | RT.EKG_ITS ---
APPROVED REPORT Exam: Resting ECG Reason for Exam: PAF Patient Location: O HR:52 bpm ECG Measurements Heart Rate 52 AXIS [place] 189 P -11 QRSd 96 QRS -4 QT 425 T 8 QTc 396 Conclusion Sinus rhythm...normal P axis, V-rate 50- 99 Normal Electrocardiogram
== END 2023-12-31 08:56 | disposition home or self-care (01) ==
LOC: DI.CARD 08:56
PROVIDERS: PCP Family Medicine; Visit Provider Internal Medicine Cardiovascular Disease
DX: I48.0 Paroxysmal atrial fibrillation (principal)
CPT/HCPCS: 93010

== ENCOUNTER → 2023-12-31 09:35 | Outpatient (BNVA) | payer MEDICARE, OTHER, SELFPAY | PROVIDERS: PCP Family Medicine; Referring Provider Family Medicine; Visit Provider Internal Medicine Cardiovascular Disease | DX: R00.1 Bradycardia, unspecified (principal); I48.0 Paroxysmal atrial fibrillation; I77.810 Thoracic aortic ectasia; Z98.890 Other specified postprocedural states | CPT/HCPCS: 93005; 99213 ==